=== PATIENT | male | born 1975 | race African-American/Black ===

== ENCOUNTER 2019-12-10 20:26 | Emergency (ER) | payer SELFPAY ==
[~2019-12-10] VITALS: Ht 177.8 cm; Wt 130.0 kg
[2019-12-10] MEDS ORDERED: HALOPERIDOL LACTATE 5MG/ML VIAL IM STA (20:53)
[2019-12-10] MEDS ORDERED: LORAZEPAM 2MG/ML CPJ IM STA (20:53)
[2019-12-10] MEDS ORDERED: SODIUM CHLORIDE 0.9% 1,000 ML IV ONE (20:53)
[2019-12-10] MEDS ORDERED: OLANZAPINE 10 MG/VIAL IM ONE (21:00)
[2019-12-10 21:44] LABS: HEMATOCRIT. 41.8 % (42.0-52.0); HEMOGLOBIN. 14.2 g/dL (14.0-18.0); LYMPHOCYTES % 12.2 % (20.0-50.0); MEAN CORPUSCULAR HEMOGLOBIN 32.6 pg (28.0-32.0); MEAN CORPUSCULAR VOLUME 96.3 fL (80.0-94.0); MEAN PLATELET VOLUME 7.5 fl (7.4-10.4); MONOCYTES % 6.9 % (2.0-8.0); NEUTROPHILS % 79.9 % (40.0-76.0); PLATELET 364 x1000/uL (130-400); RED BLOOD CELL COUNT 4.34 mill/uL (4.7-6.1); RED CELL DISTRIBUTION WIDTH 13.4 % (11.6-14.6)
[2019-12-10 21:45] LABS: CHLORIDE 105 mEq/L (98-107)
[2019-12-10 21:49] LABS: ETHANOL BLOOD < 10 mg/dL
[2019-12-10 22:40] LABS: CLARITY URINE CLEAR (CLEAR); COLOR URINE YELLOW (YELLOW); KETONES URINE NEGATIVE (NEGATIVE); LEUKOCYTE ESTERASE URINE NEGATIVE (NEGATIVE); NITRITE URINE NEGATIVE (NEGATIVE); OCCULT BLOOD URINE NEGATIVE (NEGATIVE); PROTEIN URINE TRACE (NEGATIVE); SPECIFIC GRAVITY URINE 1.019 (1.005-1.030)
[2019-12-10 22:50] LABS: *AMPHETAMINES SCREEN URINE PRESUMTIVE POSITIVE (NEGATIVE); *BARBITURATES SCREEN URINE NEGATIVE (NEGATIVE); *BENZODIAZEPINES SCREEN URINE PRESUMTIVE POSITIVE (NEGATIVE); *COCAINE SCREEN URINE NEGATIVE (NEGATIVE); METHADONE URINE SCREEN NEGATIVE (NEGATIVE); OPIATES URINE SCREEN NEGATIVE (NEGATIVE)
[2019-12-10 22:51] LABS: CANNABINOID URINE SCREEN PRESUMTIVE POSITIVE (NEGATIVE); PHENCYCLIDINE URINE SCREEN NEGATIVE (NEGATIVE)
[2019-12-11 14:30] VITALS: BP 102/56
== END 2019-12-11 15:04 | disposition home or self-care (01) ==
LOC: ER 20:26
DX: F19.10 Other psychoactive substance abuse, uncomplicated (principal); R00.0 Tachycardia, unspecified; I10 Essential (primary) hypertension; Z86.19 Personal history of other infectious and parasitic diseases; Z96.659 Presence of unspecified artificial knee joint
CPT/HCPCS: 36415; 80053; 80305; 80307; 80320; 80329; 81003; 85025; 93005; 96360; 96372; 99285; J1630; J2060; J3490; J7030; G0480

== ENCOUNTER 2019-12-31 06:14 | Emergency (ER) | payer MEDICAID ==
[~2019-12-31] VITALS: Ht 185.4 cm; Wt 102.0 kg
[2019-12-31] MEDS ORDERED: SODIUM CHLORIDE 0.9% 1,000 ML IV ONE (06:39)
[2019-12-31] MEDS ORDERED: LORAZEPAM 0.5MG TABLET PO ONE (06:45)
[2019-12-31 08:48] LABS: BASOPHILS % 0.9 % (0.0-2.0); EOSINOPHILS % 0.3 % (0.0-5.0); HEMATOCRIT. 45.2 % (42.0-52.0); HEMOGLOBIN. 15.2 g/dL (14.0-18.0); LYMPHOCYTES % 21.9 % (20.0-50.0); MEAN CORPUSCULAR HEMOGLOBIN 32.5 pg (28.0-32.0); MEAN CORPUSCULAR VOLUME 96.8 fL (80.0-94.0); MEAN PLATELET VOLUME 7.6 fl (7.4-10.4); MONOCYTES % 7.9 % (2.0-8.0); PLATELET 308 x1000/uL (130-400); RED BLOOD CELL COUNT 4.67 mill/uL (4.7-6.1); RED CELL DISTRIBUTION WIDTH 13.4 % (11.6-14.6)
[2019-12-31 08:55] LABS: CHLORIDE 104 mEq/L (98-107)
[2019-12-31 09:00] LABS: ETHANOL BLOOD < 10 mg/dL
[2019-12-31 09:14] LABS: *AMPHETAMINES SCREEN URINE PRESUMTIVE POSITIVE (NEGATIVE); *BARBITURATES SCREEN URINE NEGATIVE (NEGATIVE); *BENZODIAZEPINES SCREEN URINE NEGATIVE (NEGATIVE); *COCAINE SCREEN URINE NEGATIVE (NEGATIVE)
[2019-12-31 09:15] LABS: CANNABINOID URINE SCREEN PRESUMTIVE POSITIVE (NEGATIVE); METHADONE URINE SCREEN NEGATIVE (NEGATIVE); OPIATES URINE SCREEN NEGATIVE (NEGATIVE); PHENCYCLIDINE URINE SCREEN NEGATIVE (NEGATIVE)
[2019-12-31 10:50] VITALS: BP 126/75
== END 2019-12-31 10:58 | disposition home or self-care (01) ==
LOC: ER 06:14
DX: R00.2 Palpitations (principal); R07.89 Other chest pain; F15.10 Other stimulant abuse, uncomplicated; F31.9 Bipolar disorder, unspecified
CPT/HCPCS: 36415; 71045; 80053; 80305; 80320; 83690; 83880; 84443; 84484; 85025; 93005; 99285; J7030; G0480

== ENCOUNTER 2021-04-29 22:49 | Emergency (ER) | payer MEDICAID ==
[~2021-04-29] VITALS: Ht 182.9 cm; Wt 91.0 kg
[2021-04-30 02:05] VITALS: BP 124/73
== END 2021-04-30 02:06 | disposition home or self-care (01) ==
LOC: ER 22:49
DX: K29.70 Gastritis, unspecified, without bleeding (principal); F31.9 Bipolar disorder, unspecified; F12.10 Cannabis abuse, uncomplicated; F15.10 Other stimulant abuse, uncomplicated
CPT/HCPCS: 99283

== ENCOUNTER 2021-04-30 03:36 | Emergency (ER) | payer MEDICAID, OTHER ==
[~2021-04-30] VITALS: Ht 182.9 cm; Wt 95.0 kg
[2021-04-30 06:15] VITALS: BP 115/79
== END 2021-04-30 06:18 | disposition home or self-care (01) ==
LOC: ER 03:36
DX: F20.0 Paranoid schizophrenia (principal); F12.10 Cannabis abuse, uncomplicated; F15.10 Other stimulant abuse, uncomplicated; Z98.890 Other specified postprocedural states
CPT/HCPCS: 99281